=== PATIENT | male | born 1990 | race Caucasian/White ===

== ENCOUNTER 2019-05-12 03:36 | Emergency (ER) | payer SELFPAY ==
[~2019-05-12] VITALS: Ht 177.8 cm; Wt 100.0 kg
[2019-05-12 05:51] VITALS: BP 124/62
== END 2019-05-12 06:05 | disposition home or self-care (01) ==
LOC: ED 05:29
DX: S39.012A Strain of muscle, fascia and tendon of lower back, initial encounter (principal); M25.561 Pain in right knee; M25.562 Pain in left knee; W01.0XXA Fall on same level from slipping, tripping and stumbling without subsequent striking against object, initial encounter; Y93.89 Activity, other specified; Y92.89 Other specified places as the place of occurrence of the external cause; Y99.8 Other external cause status
CPT/HCPCS: 72110; 96372; 99283; J1885